=== PATIENT | male | born 1990 | race Caucasian/White ===

== ENCOUNTER 2017-04-01 06:57 | Day surgery (SDC) | payer OTHER ==
[~2017-04-01] VITALS: Ht 172.7 cm; Wt 83.9 kg
[2017-04-01 07:31] VITALS: BP 127/87
[2017-04-01 07:41] VITALS: BP 127/87
[2017-04-01 10:45] VITALS: BP 118/68
== END 2017-04-01 11:35 | disposition home or self-care (01) ==
LOC: DS 06:57 → GI 07:30 → OR 07:30 → DS 11:35
PROVIDERS: Internal Medicine Gastroenterology
PROC: 0DB68ZX Excision of Stomach, Via Natural or Artificial Opening Endoscopic, Diagnostic (ICD-10-PCS; principal; 2017-04-01 07:30)
PROC: 0DJD8ZZ Inspection of Lower Intestinal Tract, Via Natural or Artificial Opening Endoscopic (ICD-10-PCS; 2017-04-01 07:30)
DX: K22.10 Ulcer of esophagus without bleeding (principal); K21.9 Gastro-esophageal reflux disease without esophagitis; K64.8 Other hemorrhoids; Z68.29 Body mass index [BMI] 29.0-29.9, adult
CPT/HCPCS: 43235; 45378; J1200; J1610; J2250; J2310; J3010; J3490